=== PATIENT | female | born 1995 | race Caucasian/White ===

== ENCOUNTER 2017-04-03 21:25 | Inpatient (IN) | payer OTHER, BC ==
[~2017-04-03] VITALS: Ht 165.1 cm; Wt 51.7 kg
[~2017-04-03 21:25] MED LIST: IRON1CAP15 PO; PREN1TAB59 PO
[2017-04-03] MEDS ORDERED: NORCO 5MG PO STA (21:49)
[2017-04-03] MEDS ORDERED: NORCO 5MG PO ONE (21:57)
--- NOTE | 2017-04-03 21:57 | ER.PDOC ---
General Chief Complaint: Lower Back Pain or Injury Stated Complaint: L R ABD AND BACK PAIN TRAVEL OUT OF US: No Time seen by MD: 21:55 Source: patient Exam Limitations: no limitations History of Present Illness Initial Comments Right flank pain, patient is 18 weeks . Severity: moderate Associated Symptoms: denies symptoms Allergies: Coded Allergies: No Known Allergies (Unverified , 12/20/15) Home Meds Active Scripts Iron Fum & Ps Cmp/Fa/Vit C/B3 (IN[employer]RA F CAPSULE) 1 Each Capsule, 1 EACH PO DAILY, #30 TAB 3 Refills Prov:MARQUISE ODEN MD 04/06/16 Reported Medications Vits W-Ca,Fe,Fa(<1MG) ( VITAMINS) 1 Each Tablet, 1 EACH PO DAILY, TABLET 12/20/15 Past Medical History Medical History: no pertinent history Surgical History: no surgical history LMP (females 10-50): Social History Smoking: non-smoker Alcohol Use: none Drug Use: none Review of Systems Constitutional: no symptoms reported Cardiovascular: no symptoms reported Gastrointestinal: no symptoms reported Genitourinary: see HPI All Other Systems: Reviewed and Negative Physical Exam General Appearance: No Apparent Distress Respiratory: chest non-tender, lungs clear, normal breath sounds, no respiratory distress CVS: reg rate & rhythm, no murmur, no gallop, pulses nml Gastrointestinal: Normal Bowel Sounds, No Organomegaly, No Pulsatile Mass, Non Tender Back: CVA Tenderness (R) Extremities: Normal Range of Motion 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 NML as Tested Results/Orders Results/Orders Laboratory Tests Test 04/03/17 21:33 04/03/17 21:55 Urine Collection Type UNKNOWN Urine Color YELLOW (YELLOW) Urine Appearance CLOUDY (CLEAR) Urine Bilirubin NEGATIVE MG/DL (NEGATIVE) Urine Ketones 50 mg/dL (NEGATIVE) Urine Specific [place] 1.015 (1.005-1.035) Urine pH 6 (5.0-6.0) Urine Protein 30 mg/dL (NEGATIVE) Urine Urobilinogen NORMAL (NEGATIVE) Urine Nitrate NEGATIVE (NEGATIVE) Urine Leukocyte Esterase 500/uL 2+ (NEGATIVE) Urine Blood 50 2+ (NEGATIVE) Urine RBC 0-2 RBC/HPF (NONE SEEN) Urine WBC TNTC WBC/HPF (0-2) Urine Squamous Epithelial Cells FEW #/HPF (FEW) Urine Bacteria FEW (NONE SEEN) Urine Other 2+ MUCUS #/HPF Urine Glucose NORMAL (NEGATIVE) Ketones SMALL (NEGATIVE) White Blood Count 10.2 10^3/uL (4.5-13.0) Red Blood Count 3.52 10^6/uL (4.00-5.20) Hemoglobin 10.5 g/dL (12.4-14.8) Hematocrit 31.0 % (36.0-46.0) Mean Corpuscular Volume 88.1 fL (78-100) Mean Corpuscular Hemoglobin 29.8 pg (26-34) Mean Corpuscular Hemoglobin Concent 33.9 g/dL (33-37) Red Cell Distribution Width 13.5 % (11.5-14.5) Platelet Count 232 10^3/uL (150-400) Mean Platelet Volume 9.8 fL (7.8-11.0) Neutrophils (%) (Auto) 87.1 % (41.0-85.0) Lymphocytes (%) (Auto) 7.6 % (24.0-44.0) Monocytes (%) (Auto) 4.8 % (5.0-12.0) Neutrophils # (Auto) 8.9 10^3/uL (1.8-8.0) Lymphocytes # (Auto) 0.8 10^3/uL (1.2-5.2) Monocytes # (Auto) 0.5 10^3/uL (0.0-0.4) Absolute Immature Granulocyte (auto 0.01 10^3 u/L (0-2) Eosinophils % 0.3 % (0.0-5.0) Basophils % 0.1 % (0.0-0.2) Basophils # 0.0 10^3/uL (0.0-0.1) Eosinophil Count 0.0 10^3/uL (0.0-0.2) Sodium Level 132 mmol/L (132-145) Potassium Level 3.2 mmol/L (3.6-5.2) Chloride Level 100.0 mmol/L (96-109) Carbon Dioxide Level 21.0 mmol/L (20.0-32) Anion Gap 14.2 Blood Urea Nitrogen 10 mg/dL (7-18) Creatinine 0.78 mg/dL (0.59-1.40) Estimated GFR () 115.1 (>/=60) BUN/Creatinine Ratio 12.0 Glucose Level 102 mg/dL (70-110) Calcium Level 8.1 mg/dL (8.4-10.5) Total Bilirubin 0.4 mg/dL (0.2-1.0) Aspartate Amino Transf (AST/SGOT) 8 U/L (0-35) Alanine Aminotransferase (ALT/SGPT) 11 U/L (12-78) Alkaline Phosphatase 69 U/L (50-136) Total Protein 6.7 g/dL (6.4-8.2) Albumin 2.6 g/dL (3.4-5.0) Globulin 4.1 Percent Immature Gran (Cell Imm) 0.10 % (0.00-0.50) Administered Medications Medications (Trade) Dose Ordered Sig/Cele Route PRN Reason Start Time Stop Time Status Last Admin Dose Admin Acetaminophen/ Hydrocodone Bitart ([place] 5mg) 1 ea STAT STAT PO 04/03/17 21:49 04/03/17 21:51 DC 04/03/17 21:59 Departure Time of Disposition: 22:23 Disposition: 09 ADMITTED INPATIENT Impression: Primary Impression: Pyelonephritis affecting in second trimester Additional Impression: Dehydration during Condition: Stable Referrals: MARQUISE ODEN MD (PCP) PRIMARY CARE PROVIDER Comments Admitted to Dr. Dhruv JEFFERSON,VISHNU Mccarthy MD Apr 03, 2017 21:57
[2017-04-03 22:02] LABS: BASOPHIL % 0.1 % (0.0-0.2); EOSINOPHIL % 0.3 % (0.0-5.0); HEMOGLOBIN 10.5 g/dL (12.4-14.8); LYMPHOCYTES # 0.8 10^3/uL (1.2-5.2); LYMPHOCYTES % 7.6 % (24.0-44.0); MEAN CELL HGB 29.8 pg (26-34); MEAN CELL HGB CONCENTRATION 33.9 g/dL (33-37); MEAN CORP VOLUME 88.1 fL (78-100); MEAN PLATELET VOLUME 9.8 fL (7.8-11.0); MONOCYTES # 0.5 10^3/uL (0.0-0.4); MONOCYTES % 4.8 % (5.0-12.0); NEUTROPHIL # 8.9 10^3/uL (1.8-8.0); NEUTROPHILS % 87.1 % (41.0-85.0); RED CELL DISTRIBUTION WIDTH 13.5 % (11.5-14.5); WHITE BLOOD CELL 10.2 10^3/uL (4.5-13.0)
[2017-04-03 22:04] LABS: BILIRUBIN,URINE NEGATIVE (NEGATIVE); UROBILINOGEN,URINE NORMAL (NEGATIVE)
[2017-04-03 22:12] LABS: APPEARANCE,URINE CLOUDY (CLEAR); UA COLOR YELLOW (YELLOW); WBC,URINE TNTC WBC/HPF (0-2)
[2017-04-03 22:17] LABS: CALCIUM 8.1 mg/dL (8.4-10.5)
--- NOTE | 2017-04-03 22:22 | NUR ---
DR AKSHAT CHAVEZ MBA SPEAKING WITH DR ODEN , PATIENT TO BE ADMITTED
--- NOTE | 2017-04-03 22:25 | PRM.ACF1 ---
Date and Time Date and Time Time: 22:24 Admission Criteria Forms DEHYDRATION Clinical Indications for Admission to Inpatient Care ([place]/check or initial the applicable condition/criteria) Admission is indicated for 1or more of the following (1)(2)(3) [ ]I. Serious cause for dehydration requiring acute hospitalization(e.g., bowel obstruction, increased intracranial pressure, infectious cause) [ ]II. Inpatient admission required [A] rather than observation care (see Dehydration:Observation Care guideline as appropriate)because of ANY ONE of the following (4)(5) [ ]a) Vomiting that is severe or persistent [ ]a) Dehydration that is severe or persistent [ ]a) IV fluid required rather than oral rehydration to replace significant ongoing(eg, for greater than 24 hours)losses(greaterthan3 L/w4nrocit ) (6) [ ]a) Parenteral nutrition regimen that must be implemented on inpatient basis [ x]a) Other condition, treatment, or monitoring requiring inpatient admission Extended stay beyond goal length of stay may be needed for (1)(2)(3)(9) [ ]a) Chronic severe dehydration [ ]b) Persistent vital sign changes, severe electrolyte imbalance, or diagnosed cause of dehydration that requires continued hospitalization(e.g., bowel obstruction, increased intracranial pressure) [ ]c) Severe comorbid illness (e.g., renal failure, heart failure, poorly controlled diabetes) [ ]d) Older patients (75 years or older) The original [employer] content created by [employer] has been revised. The portions of the content which have been revised are identified through the use of italic text, and [facility] has neither reviewed nor approved the modified material. All other unmodified content is copyright [employer]. Please see references footnoted in the original [employer] edition 2014 VISHNU JEFFERSON MD Apr 03, 2017 22:25
[2017-04-03] MEDS ORDERED: ANCEF IV STA (22:26)
[2017-04-03] MEDS ORDERED: NS 1000ML 1,000 ML IV STA (22:26)
[2017-04-03] MEDS ORDERED: NS 1000ML 1,000 ML ONE (22:26)
[2017-04-03] MEDS ORDERED: D5W-1/2 NS/KCL 20MEQ 1,000 ML IV SCH (22:30)
[2017-04-03] MEDS: ANCEF 1 GM in NS 100ML 100 ML IV SCH (22:30)
[2017-04-03] MEDS ORDERED: NS 100ML 100 ML IV ONE (22:32)
[2017-04-03] MEDS ORDERED: ANCEF ONE (22:33)
--- NOTE | 2017-04-03 22:45 | NUR ---
ANCEF STILL INFUSING,STOPPED FOR BILLING
[2017-04-03] MEDS ORDERED: D5W-1/2 NS/KCL 20MEQ 1,000 ML ONE (23:41)
[2017-04-03 23:50] VITALS: BP 110/35
--- NOTE | 2017-04-04 00:15 | NUR ---
Phoned Dr Bartlett and informed him pt is reporting right CVA pain rated 9/10 and does not have any current pain medication orders. Informed him pt rec'd norco in ER and it decreased her pain from 9 to 6. Rec'd order to give demerol 50 mg with phenergan 25 mg SIVP q4h prn pain.
--- NOTE | 2017-04-04 00:48 | NUR ---
Demerol 50 mg /phenergan 25 given diluted SIVP for back and flank pain rated 9/10.
[2017-04-04] MEDS ORDERED: PHENERGAN IV PRN (01:00)
[2017-04-04] MEDS ORDERED: DEMEROL IV PRN (01:00)
[2017-04-04] MEDS ORDERED: NS 100ML 100 ML IV ONE ×2 (05:41→21:09)
[2017-04-04] MEDS ORDERED: ANCEF ONE ×2 (05:41→21:09)
[2017-04-04] MEDS: ANCEF 1 GM in NS 100ML 100 ML IV SCH (05:52)
[2017-04-04] MEDS ORDERED: DEXTROSE IV SCH (11:00)
[2017-04-04] MEDS ORDERED: CEFAZOLIN 1 GM/50 ML IV SCH (11:00)
[2017-04-04] MEDS: LACTATED RINGERS 1,000 ML IV SCH ×2 (12:31→21:13)
[2017-04-04] MEDS ORDERED: TYLENOL PO ONE (18:11)
[2017-04-04] MEDS: TYLENOL PO PRN (18:16)
[2017-04-04] MEDS ORDERED: LACTATED RINGERS 1,000 ML ONE (21:09)
[2017-04-04] MEDS: CEFAZOLIN 1 GM/50 ML IV SCH (21:13)
[2017-04-04] MEDS: DEXTROSE IV SCH (21:13)
[2017-04-05] MEDS ORDERED: TYLENOL PO ONE ×2 (04:17→09:50)
[2017-04-05] MEDS: TYLENOL PO PRN ×2 (04:19→09:53)
[2017-04-05] MEDS: CEFAZOLIN 1 GM/50 ML IV SCH ×4 (06:00→22:15)
[2017-04-05] MEDS: DEXTROSE IV SCH ×4 (06:00→22:15)
[2017-04-05] MEDS ORDERED: LACTATED RINGERS 1,000 ML ONE ×2 (07:32→15:29)
[2017-04-05] MEDS: LACTATED RINGERS 1,000 ML IV SCH ×2 (07:36→15:34)
--- NOTE | 2017-04-05 08:24 | PRM.PN ---
Subjective Progress Notes Post Op/Hospital Day: Hospital day #: (3) Subjective: Pain controlled, Voiding w/out difficulty (but had fever to 102.4 last night) Objective Vital Signs and I&O Vital Signs Date Time Temp Pulse Resp B/P (MAP) Pulse Ox O2 Delivery O2 Flow Rate FiO2 04/03/17 23:50 Room Air 04/03/17 23:50 98.4 100 20 110/35 (60) 97 General: No acute distress Respiratory Auscultation: Normal Breath Sounds Cardiovascular auscultation: Normal S1 S2 Gastrointestinal: Comment (Right CVA pain) Neurological: Non-focal exam Meds/Labs/Orders Medication List: Current Medications Medications (Trade) Dose Ordered Sig/Cele PRN Reason Start Time Stop Time Status Last Admin Acetaminophen (Tylenol) 1,000 mg Q6HR PRN PAIN or fever 04/04/17 18:30 05/04/17 18:29 04/05/17 04:19 Cefazolin Sodium/ Dextrose 50 ml @ 50 mls/hr Q8 04/04/17 14:00 05/04/17 13:59 04/05/17 06:27 Meperidine HCl (Demerol) 50 mg Q4HR PRN PAIN 04/04/17 01:00 05/04/17 00:59 04/04/17 00:45 Promethazine HCl (Phenergan) 25 mg Q4H PRN NAUSEA / VOMITING 04/04/17 01:00 05/04/17 00:59 04/04/17 00:46 Lab results: Laboratory Tests Test 04/03/17 21:33 04/03/17 21:55 Urine Collection Type UNKNOWN Urine Color YELLOW Urine Appearance CLOUDY Urine Bilirubin NEGATIVE MG/DL Urine Ketones 50 mg/dL Urine Specific [place] 1.015 Urine pH 6 Urine Protein 30 mg/dL Urine Urobilinogen NORMAL Urine Nitrate NEGATIVE Urine Leukocyte Esterase 500/uL 2+ Urine Blood 50 2+ Urine RBC 0-2 RBC/HPF Urine WBC TNTC WBC/HPF Urine Squamous Epithelial Cells FEW #/HPF Urine Bacteria FEW Urine Other 2+ MUCUS #/HPF Urine Glucose NORMAL Ketones SMALL White Blood Count 10.2 10^3/uL Red Blood Count 3.52 10^6/uL Hemoglobin 10.5 g/dL Hematocrit 31.0 % Mean Corpuscular Volume 88.1 fL Mean Corpuscular Hemoglobin 29.8 pg Mean Corpuscular Hemoglobin Concent 33.9 g/dL Red Cell Distribution Width 13.5 % Platelet Count 232 10^3/uL Mean Platelet Volume 9.8 fL Neutrophils (%) (Auto) 87.1 % Lymphocytes (%) (Auto) 7.6 % Monocytes (%) (Auto) 4.8 % Neutrophils # (Auto) 8.9 10^3/uL Lymphocytes # (Auto) 0.8 10^3/uL Monocytes # (Auto) 0.5 10^3/uL Absolute Immature Granulocyte (auto 0.01 10^3 u/L Eosinophils % 0.3 % Basophils % 0.1 % Basophils # 0.0 10^3/uL Eosinophil Count 0.0 10^3/uL Sodium Level 132 mmol/L Potassium Level 3.2 mmol/L Chloride Level 100.0 mmol/L Carbon Dioxide Level 21.0 mmol/L Anion Gap 14.2 Blood Urea Nitrogen 10 mg/dL Creatinine 0.78 mg/dL Estimated GFR () 115.1 BUN/Creatinine Ratio 12.0 Glucose Level 102 mg/dL Calcium Level 8.1 mg/dL Total Bilirubin 0.4 mg/dL Aspartate Amino Transf (AST/SGOT) 8 U/L Alanine Aminotransferase (ALT/SGPT) 11 U/L Alkaline Phosphatase 69 U/L Total Protein 6.7 g/dL Albumin 2.6 g/dL Globulin 4.1 Percent Immature Gran (Cell Imm) 0.10 % My orders: Orders - MARQUISE ODEN MD Meperidine Hcl/Pf (Demerol) (04/04/17 01:00) Promethazine Hcl (Phenergan) (04/04/17 01:00) Ringer's Solution,Lactated (Lactated Rin (04/04/17 12:30) Doppler Ht Qshift <26wks (04/04/17 16:29) Acetaminophen (Tylenol) (04/04/17 18:30) Plan Assessment Problems: (1) Urinary tract infection Status: Acute ICD Code: N39.0 - Urinary tract infection, site not specified SNOMED: 75351542 (2) Pyelonephritis affecting in second trimester Status: Acute ICD Code: O23.02 - Infections of kidney in , second trimester SNOMED: 14491012, 34089720, 788988210, [id number] Plan Diagnostics: Labs ordered Additional comments: I will try to let her go home after 24 hours afebrile. She has a 3 year old birthday part to go to but she understands if she spikes another fever, she will need to stay. MARQUISE ODEN MD Apr 05, 2017 08:24
--- NOTE | 2017-04-05 10:17 | HPH ---
ADMIT DATE: 04/03/2017 CHIEF COMPLAINT: Flank pain. HISTORY OF PRESENT ILLNESS: The patient is a 2, para 1 at 18 weeks' gestation who presented to the Emergency Room after being evaluated by a physician in [place] for right flank pain, fevers and chills. She was treated with Toradol IM and an antibiotic injection there. However, her condition worsened and she presented for evaluation. She reports she has had the symptoms for about 2 days prior to admission and they have gotten progressively worse. She has also had nausea, vomiting and some chills. OBSTETRIC HISTORY: 2, para 1 at 18 weeks' gestation, uncomplicated. GYNECOLOGIC HISTORY: Unremarkable. PAST MEDICAL HISTORY: Unremarkable. SOCIAL HISTORY: The patient is , does not smoke, drink or use illicit substances. REVIEW OF SYSTEMS: Negative except as noted above. PHYSICAL EXAMINATION: VITAL SIGNS: On arrival, she is alert and oriented and appears ill. She has a temperature of 101.2. She has normal blood pressure. GENERAL: She is a well-nourished, well-developed female who does appear to be in acute distress. HEENT: Unremarkable. CARDIOVASCULAR: Shows a regular rhythm with elevated heart rate in the 110s. PULMONARY: Her lungs are clear to auscultation bilaterally. ABDOMEN: The abdomen is soft, nontender, nondistended with normal uterine fundus. There is significant right flank pain. EXTREMITIES: No cyanosis, clubbing or edema. LABORATORY DATA: She has a normal white blood cell count with a left trend and her urinalysis is notable for too numerous to count wbc's with a few bacteria, greater than 50 blood, cloudy, negative nitrites. IMPRESSION: 1. Acute pyelonephritis. 2. , incidental state. PLAN: She is going to be admitted for IV antibiotics and we will follow her cultures to ensure she receives appropriate antibiotic coverage. Jian Bartlett MD DR: HARSHA/matilde JOB# [id number]
[2017-04-06] MEDS ORDERED: LACTATED RINGERS 1,000 ML ONE (02:26)
[2017-04-06] MEDS: LACTATED RINGERS 1,000 ML IV SCH (02:32)
[2017-04-06] MEDS: CEFAZOLIN 1 GM/50 ML IV SCH (06:06)
[2017-04-06] MEDS: DEXTROSE IV SCH (06:06)
[2017-04-06 11:27] VITALS: BP 110/66
--- NOTE | 2017-04-06 17:30 | PRM.DC ---
OB Discharge Summary Discharge Summary Discharge Diagnosis: IUP (18+ weeks' gestation with Right-sided pyelonephritis) Vitals Pt was discharged afebrile X nearly 48 hours. She was on Ancef IV only for her right-sided pyelonephritis. Complications: No Complications Abnormal Lab Results Current Medications Medications (Trade) Dose Ordered Sig/Cele Route PRN Reason Start Time Stop Time Status Last Admin Dose Admin Acetaminophen/ Hydrocodone Bitart ([place] 5mg) 1 ea STAT STAT PO 04/03/17 21:49 04/03/17 21:51 DC 04/03/17 21:59 Acetaminophen/ Hydrocodone Bitart ([place] 5mg) 1 ea STK-MED ONCE PO 04/03/17 21:57 04/03/17 21:58 DC Sodium Chloride 1,000 ml @ ud STK-MED ONCE .ROUTE 04/03/17 22:26 04/03/17 22:28 DC Sodium Chloride 1,000 ml @ 1,200 mls/hr Q50M STAT IV 04/03/17 22:26 04/03/17 23:15 DC 04/03/17 22:32 Potassium Chloride/Dextrose/ Sod Cl 1,000 ml @ 100 mls/hr Q10H IV 04/03/17 22:30 04/04/17 12:17 DC 04/03/17 23:44 Cefazolin Sodium 1 gm/Sodium Chloride 100 ml @ 100 mls/hr Q8H IV 04/03/17 22:30 04/04/17 10:50 DC 04/04/17 05:52 Cefazolin Sodium (Ancef) 1 gm STAT STAT IV 04/03/17 22:26 04/03/17 22:31 DC 04/03/17 22:42 Sodium Chloride 100 ml @ ud STK-MED ONCE IV 04/03/17 22:32 04/03/17 22:34 DC Cefazolin Sodium (Ancef) 1 gm STK-MED ONCE .ROUTE 04/03/17 22:33 04/03/17 22:34 DC Potassium Chloride/Dextrose/ Sod Cl 1,000 ml @ ud STK-MED ONCE .ROUTE 04/03/17 23:41 04/03/17 23:42 DC Meperidine HCl (Demerol) 50 mg Q4HR PRN IV PAIN 04/04/17 01:00 04/06/17 13:48 DC 04/04/17 00:45 Promethazine HCl (Phenergan) 25 mg Q4H PRN IV NAUSEA / VOMITING 04/04/17 01:00 04/06/17 13:48 DC 04/04/17 00:46 Sodium Chloride 100 ml @ ud STK-MED ONCE IV 04/04/17 05:41 04/04/17 05:42 DC Cefazolin Sodium (Ancef) 1 gm STK-MED ONCE .ROUTE 04/04/17 05:41 04/04/17 05:43 DC Cefazolin Sodium/ Dextrose 50 ml @ 50 mls/hr Q8H IV 04/04/17 11:00 04/04/17 11:00 DC 04/04/17 14:17 Cefazolin Sodium/ Dextrose 50 ml @ 50 mls/hr Q8 IV 04/04/17 14:00 04/06/17 13:48 DC 04/06/17 06:06 Acetaminophen (Tylenol) 500 mg STK-MED ONCE PO 04/04/17 18:11 04/04/17 18:13 DC Acetaminophen (Tylenol) 1,000 mg Q6HR PRN PO PAIN or fever 04/04/17 18:30 04/06/17 13:48 DC 04/05/17 09:53 Sodium Chloride 100 ml @ ud STK-MED ONCE IV 04/04/17 21:09 04/04/17 21:10 DC Cefazolin Sodium (Ancef) 1 gm STK-MED ONCE .ROUTE 04/04/17 21:09 04/04/17 21:11 DC Acetaminophen (Tylenol) 500 mg STK-MED ONCE PO 04/05/17 04:17 04/05/17 04:19 DC Acetaminophen (Tylenol) 500 mg STK-MED ONCE PO 04/05/17 09:50 04/05/17 09:51 DC Medications: Other (Pt was sent home on Macrobid 100mg's PO BID X 7 days #14 no refills (called in by Michelle Anders RN)) Discharge Disposition: Stable Discharge Instructions: Clinic F/U 1-2 Weeks (Pt to F/U with Dr Bartlett when he returns to [facility] this upcoming Saturday.) Additional Comments Pt's urine culture grew nothing, but I wished (and so did the patient) to have her go home on oral antibiotics for her kidney infection. CAYETANO ALEXANDRE MD Apr 06, 2017 17:30
[2017-04-06] MEDS ORDERED: NITR100C58 PO (17:34)
== END 2017-04-06 13:45 | disposition home or self-care (01) | DRG 781 ==
LOC: ER 21:25 → LND 22:24
PROVIDERS: ADMIT Obstetrics & Gynecology; ATTEND Obstetrics & Gynecology
DX: O23.02 Infections of kidney in pregnancy, second trimester (principal); E86.0 Dehydration; O99.282 Endocrine, nutritional and metabolic diseases complicating pregnancy, second trimester; Z3A.18 18 weeks gestation of pregnancy; Z79.899 Other long term (current) drug therapy
CPT/HCPCS: 36415; 76825; 80053; 81000; 85025; 87040; 87086; 96374; 99285; J0690; J2175; J2550; J7030; J7050; J7070; J7120

== ENCOUNTER → 2017-04-19 | Outpatient (CLI) | payer OTHER, BC ==
[~2017-04-19] MED LIST changes: +NITR100C58 PO
== END | disposition home or self-care (01) ==
LOC: RAD 12:20
PROVIDERS: ATTEND Obstetrics & Gynecology
DX: Z34.82 Encounter for supervision of other normal pregnancy, second trimester (principal); Z3A.20 20 weeks gestation of pregnancy
CPT/HCPCS: 76811